=== PATIENT | female | born 1945 | race Two or more races ===

== ENCOUNTER 2022-09-10 08:36 | Outpatient (REF) | payer MEDICARE, SELFPAY ==
[2022-09-10 09:58] LABS: Alanine Aminotransferase 15 U/L (0-31); Albumin Level 4.4 g/dL (3.5-5.0); Alkaline Phosphatase 111 U/L (39-117); Anion Gap 11 (12-20); Aspartate Amino Transferase 17 U/L (5-31); Bilirubin Total 0.7 mg/dL (0.0-1.0); Blood Urea Nitrogen 15 mg/dL (9-16); Calcium 9.8 mg/dL (8.4-10.2); Carbon Dioxide 27 mmol/L (22-29); Chloride 102 mmol/L (96-108); Cholesterol 132 mg/dL; Estimated Glomerular Filt Rate 58; Glucose Random 147 mg/dL (60-115); HDL Cholesterol 35 mg/dL; LDL Cholesterol Calculated 78 mg/dl; Potassium 4.3 mmol/L (3.3-5.1); Sodium 136 mmol/L (135-145); Total Protein 7.7 g/dL (6.5-8.0); Triglycerides 95 mg/dL
[2022-09-10 10:16] LABS: Thyroid Stimulating Hormone 3.36 uIU/mL (0.32-4.0)
[2022-09-12 07:54] LABS: Thyroglobulin Antibodies <1 IU/mL (< or = 1)
[2022-09-12 13:18] LABS: Thyroid Peroxidase Antibodies <1 IU/mL (<9)
== END 2022-09-10 08:37 | disposition home or self-care (01) ==
LOC: HO.LAB 08:36
PROVIDERS: Visit Provider Internal Medicine
DX: E03.9 Hypothyroidism, unspecified (principal); E11.9 Type 2 diabetes mellitus without complications; E55.9 Vitamin D deficiency, unspecified; E78.5 Hyperlipidemia, unspecified
CPT/HCPCS: 36415; 80053; 80061; 82306; 84443; 86376; 86800

== ENCOUNTER 2022-09-14 09:28 | Outpatient (REF) | payer MEDICARE, SELFPAY ==
[2022-09-14 10:26] LABS: Creatinine Urine 45.07 mg/dL; Microalbumin Urine < 5.0 mg/L
== END 2022-09-14 09:29 | disposition home or self-care (01) ==
LOC: HO.LNP 09:28
PROVIDERS: Visit Provider Internal Medicine
DX: E11.9 Type 2 diabetes mellitus without complications (principal)
CPT/HCPCS: 82043

== ENCOUNTER 2023-03-07 09:24 | Outpatient (REF) | payer MEDICARE, SELFPAY | END 2023-03-07 09:25 | disposition home or self-care (01) | LOC: HO.LAB 09:24 | PROVIDERS: PCP Internal Medicine; Visit Provider Internal Medicine | DX: E03.9 Hypothyroidism, unspecified (principal); E55.9 Vitamin D deficiency, unspecified; E78.5 Hyperlipidemia, unspecified; E11.9 Type 2 diabetes mellitus without complications | CPT/HCPCS: 36415; 80053; 80061; 82043; 82306; 84443 ==

== ENCOUNTER 2023-07-08 09:56 | Outpatient (REF) | payer MEDICARE, SELFPAY ==
[2023-07-09 14:50] LABS: Calcium, Ionized 5.4 mg/dL (4.7-5.5)
[2023-07-09 15:23] LABS: Calcium (PTHI) 9.9 mg/dL (8.6-10.4); PTHI 39 pg/mL (16-77)
[2023-07-10 16:49] LABS: Calcium, Random Urine 2.4 mg/dL
== END 2023-07-08 09:57 | disposition home or self-care (01) ==
LOC: HO.LAB 09:56
PROVIDERS: PCP Internal Medicine; Visit Provider Internal Medicine
DX: E83.52 Hypercalcemia (principal)
CPT/HCPCS: 36415; 82310; 82330; 83970

== ENCOUNTER 2023-07-08 10:22 | Outpatient (AMB) | payer MEDICARE, SELFPAY ==
--- NOTE | 2023-07-08 10:34 | A.OFFPC_ITS ---
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 Required: No Accompanied by: Self / Same As Patient Allergies No Known Allergies Allergy (Verified 07/08/23 10:45) Medication List - Last Reconciled 07/08/23 by Lea Crockett MD atorvastatin 20 mg PO BEDTIME 90 days cholecalciferol (vitamin D3) 25 mcg PO DAILY 90 days hydrochlorothiazide 25 mg PO DAILY 90 days levothyroxine 50 mcg PO DAILY 90 days loratadine 10 mg PO DAILY 30 days losartan 50 mg PO DAILY 90 days metformin ER 500 mg PO BID 90 days triamcinolone acetonide 0.5% 1 appl topical DAILY 30 days Tobacco use date assessed: 09/05/22 Fall risk assessment: No Falls in past year Last assessed Fall Risk: 07/08/23 Dental Screening Dental Screen Date: 07/08/23 Did you have a dental visit in the last 12 months?: No Did you have a dental problem in the last 6 months where you did not have access to dental care?: No Was dental information given to patient?: Patient has dentist HPI HPI Comments History of Present Illness Details This is a 77-year-old female with diabetes mellitus type 2, hypertension, hyperlipidemia and hypothyroidism that complains of pain in feet aggravated by walking associated with decrease in sensation most likely secondary to neuropathy. A1c elevated and I will increase metformin to 3 tablets daily. Blood pressure elevated and this will be monitor. Lipid panel was order and her LDL goal should be less than 70. TSH also was order. A cane was order for gait stability due to pain in feet. [facility] Surgical History History of surgery on arm History of back surgery Family History Mother No problems noted. Father Diabetes Social History Housing: Apartment Alcohol intake: current Alcohol intake frequency: holidays/special occasions only Alcohol type: wine Patient Tobacco Use Status: Never used Tobacco e-Cigarette/Vaping Use: Never Used Second Hand Smoke Exposure: No service: No Current occupational status: disabled Cognitive needs: No Hearing needs: No Vision needs: No Questionnaire Thrive Questionnaire Date Thrive assessed: 09/05/22 CARMENZA-7 AMB Questionnaire CARMENZA-7 Date CARMENZA - 7 assessed: 09/05/22 Source: Developed by Drs. Jerardo Foster, Michelle Costa, Marcelino Ruffin and colleagues, with an educational coral from [employer]. Review of Systems Const All systems reviewed & are unremarkable except as noted in HPI and below Eyes Reports no additional complaints, Denies change in vision and Denies other visual disturbances Card Denies chest pain at rest, Denies chest pain with activity, Denies edema, Denies irregular heart rhythm, Denies claudication, Denies dyspnea, Denies dyspnea on exertion, Denies orthopnea, Denies paroxysmal nocturnal dyspnea and Denies slow heart rate Resp Denies cough, Denies dyspnea and Denies dyspnea on exertion GI Denies abdominal pain, Denies change in bowel habits, Denies excessive flatus, Denies nausea and Denies vomiting Denies urinary incontinence, Denies urinary hesitancy and Denies urinary urgency Musc Denies abnormal gait, Denies atrophy, Denies deformity and Denies limited range of motion Skin/Breast Denies bleeding lesions, Denies changing lesions and Denies rash Neuro Denies abnormal gait and Denies lack of coordination Physical exam (Primary Care) Vital Signs: Last Vital Signs BP 180/92 H 07/08/23 10:38 BMI result Body Mass Index 28.7 Tobacco/Smoking Status: Tobacco use Status Tobacco use date assessed 09/05/22 07/08/23 10:34 Patient Tobacco Use Status Never used Tobacco 07/08/23 10:34 e-Cigarette/Vaping Use Never Used 07/08/23 10:34 Thrive Assessment: Date of Thrive Assessment Date Thrive assessed 09/05/22 07/08/23 10:34 Eyes General: appearance normal, both eyes and all related structures Eyelids: Yes eyelids normal Conjunctivae: conjunctivae normal Neck Neck: Yes normal visual inspection and Yes supple Resp Effort & Inspection: normal respiratory effort Auscultation: clear to auscultation bilaterally Cardio Jugular venous distension: no JVD Rate: regular rate Rhythm: regular rhythm Heart sounds: S1 normal heart sound present and S2 normal heart sound present Extrem General: Yes full ROM Office Procedures Flu Questionnaire Does the patient have a severe egg allergy?: No Does the patient have severe life threatening allergies?: No Does the patient have a fever or illness today?: No Has the patient ever had Guillain-[place] Syndrome?: No Has the patient ever had any past reaction to a flu shot?: No Results AMB Hemoglobin A1c AMB Hemoglobin A1c 7.3 % Last Edit by JESÚS Price on 07/08/23 11:0 1 Immunizations flu vacc [id number] 6mos up(PF) 60 mcg(15 mcgx4)/0.5 mL IM syringe Performing Provider: Lea Crockett MD [facility] Administered by: JESÚS Price on 07/08/23 11:00 Dose Route Admin Location Dispensed Lot Number Expiration Date NDC [employer] [employer] 0.5 mL IM Right Deltoid 0.5 mL [id number] 03/01/24 59922-111-95 [employer] VIS Given Date VIS Provided VIS Publication Date 07/08/23 Single Vaccine 21 Eligibility Eligibility Date Funding Source Not VFC Eligible 07/08/23 Private Results Reviewed Results Reviewed: Laboratory Last Values Hgb A1c (Clinic) 7.3 % (4.0-6.0) H 07/08/23 10:43 Assessment and Plan Assessment & Plan (1) Diabetes mellitus: Code(s): E11.9 - Type 2 diabetes mellitus without complications Plan: Increase metformin to 3 tabs once a day. A1c goal is equal or less than 7%. (2) Hyperlipidemia LDL goal <70: Code(s): E78.5 - Hyperlipidemia, unspecified Plan: Continue statins. Repeat lipid panel. LDL goal is less than 70. (3) Essential hypertension: Code(s): I10 - Essential (primary) hypertension Plan: Continue losartan. Blood pressure goal is equal or less than 130/80. Monitor blood pressure at home. (4) Hypothyroidism: Code(s): E03.9 - Hypothyroidism, unspecified Plan: Continue levothyroxine. Monitor TSH. (5) Pain in both feet: Code(s): M79.671 - Pain in right foot; M79.672 - Pain in left foot Plan: Start using a cane for gait stability. Orders: Orders Influenza [id number] Immunization Today Z23 - Encounter for immunization Comprehensive [place]. Panel Fast 4 Months E11.9 - Type 2 diabetes mellitus without complications Thyroid Stimulating Hormone 4 Months E03.9 - Hypothyroidism, unspecified AMB Hemoglobin A1c Today E11.9 - Type 2 diabetes mellitus without complications Lipid Panel 4 Months E78.5 - Hyperlipidemia, unspecified Medications: New [diabetic shoes with inserts] As directed 1 ea 0RF E11.9 - Type 2 diabetes mellitus without complications, G62.9 - Polyneuropathy, unspecified cane As directed 1 ea 0RF G62.9 - Polyneuropathy, unspecified, M79.671 - Pain in right foot, M79.672 - Pain in left foot Changed From metformin ER 500 mg PO BID 90 days 180 tabs 1RF E11.9 - Type 2 diabetes mellitus without complications To metformin ER 1,500 mg (3 x 500 mg) PO DAILY 270 tabs 1RF 90 days E11.9 - Type 2 diabetes mellitus without complications Coding Level of Care Code Est Pt Level 4 (31252) Diagnoses Diabetes mellitus E11.9 Hyperlipidemia LDL goal <70 E78.5 Essential hypertension I10 Hypothyroidism E03.9 Pain in both feet M79.671; M79.672 Time Spent (min) 22
[2023-07-08 10:38] VITALS: BP 180/92; BMI 28.7
[2023-07-08 11:26] VITALS: BP 160/90
== END 2023-07-08 11:02 | disposition home or self-care (01) ==
PROVIDERS: PCP Internal Medicine; Visit Provider Internal Medicine
DX: E11.9 Type 2 diabetes mellitus without complications (principal); E78.5 Hyperlipidemia, unspecified; I10 Essential (primary) hypertension; E03.9 Hypothyroidism, unspecified; M79.671 Pain in right foot; M79.672 Pain in left foot; Z23 Encounter for immunization
CPT/HCPCS: 83036; 90471; 90686; 99214

== ENCOUNTER 2023-11-11 07:32 | Outpatient (REF) | payer MEDICARE, SELFPAY ==
[2023-11-11 09:11] LABS: Alanine Aminotransferase 15 U/L (0-31); Albumin Level 4.2 g/dL (3.5-5.0); Alkaline Phosphatase 117 U/L (39-117); Anion Gap 12 (12-20); Aspartate Amino Transferase 15 U/L (5-31); Bilirubin Total 0.8 mg/dL (0.0-1.0); Blood Urea Nitrogen 15 mg/dL (9-16); Calcium 9.8 mg/dL (8.4-10.2); Carbon Dioxide 29 mmol/L (22-29); Chloride 103 mmol/L (96-108); Cholesterol 115 mg/dL (<200); Estimated Glomerular Filt Rate 56; Glucose Fasting 188 mg/dL (60-99); HDL Cholesterol 32 mg/dL (>40); LDL Cholesterol Calculated 66 mg/dL (<100); Potassium 4.2 mmol/L (3.3-5.1); Sodium 140 mmol/L (135-145); Total Protein 7.5 g/dL (6.5-8.0); Triglycerides 86 mg/dL (<150)
[2023-11-11 09:26] LABS: Thyroid Stimulating Hormone 4.04 uIU/mL (0.32-4.0)
== END 2023-11-11 07:33 | disposition home or self-care (01) ==
LOC: HO.LAB 07:32
PROVIDERS: PCP Internal Medicine; Visit Provider Internal Medicine
DX: E78.5 Hyperlipidemia, unspecified (principal); E11.9 Type 2 diabetes mellitus without complications; E03.9 Hypothyroidism, unspecified
CPT/HCPCS: 36415; 80053; 80061; 84443

== ENCOUNTER 2023-11-11 07:45 | Outpatient (AMB) | payer MEDICARE, SELFPAY ==
--- NOTE | 2023-11-11 07:51 | MHC.PC.OV ---
Vital Signs 11/11/23 07:52 11/11/23 08:21 Height 5 ft 2 in Weight 158 lb BMI 28.9 BP 140/90 H 142/90 H Blood Pressure Location Lt brachial Lt brachial Position Sitting Sitting Intake Visit Reasons: dm,bp Intake Note: Patient here for a follow up BP, DM Fsr Required: No Accompanied by: Self / Same As Patient Allergies No Known Allergies Allergy (Verified 11/11/23 08:04) Medication List - Last Reconciled 11/11/23 by Lea Crockett MD atorvastatin 20 mg PO BEDTIME 90 days cane As directed cholecalciferol (vitamin D3) 25 mcg PO DAILY 90 days [diabetic shoes with inserts As directed] hydrochlorothiazide 25 mg PO DAILY 90 days levothyroxine 50 mcg PO DAILY 90 days loratadine 10 mg PO DAILY 30 days losartan 50 mg PO DAILY 90 days metformin ER 1,500 mg (3 x 500 mg) PO DAILY 90 days triamcinolone acetonide 0.5% 1 appl topical DAILY 30 days Tobacco use date assessed: 11/11/23 Fall risk assessment: No Falls in past year Last assessed Fall Risk: 11/11/23 Dental Screening Dental Screen Date: 11/11/23 Did you have a dental visit in the last 12 months?: No Did you have a dental problem in the last 6 months where you did not have access to dental care?: No Was dental information given to patient?: Patient declined HPI HPI Comments History of Present Illness Details This is a 77-year-old female with diabetes mellitus type 2, hypertension, hyperlipidemia and hypothyroidism that comes today for follow-up on her conditions. Blood pressure elevated and will be recheck in 3 weeks by nurse navigator. I will increase losartan from 50 mg to 100 mg. A1c not on goal and I will add Jardiance to her metformin. Labs are still pending. No chest pain or shortness of breath. [facility] Surgical History History of surgery on arm History of back surgery Family History Mother No problems noted. Father Diabetes Social History Housing: Apartment Alcohol intake: current Alcohol intake frequency: holidays/special occasions only Alcohol type: wine Patient Tobacco Use Status: Never used Tobacco e-Cigarette/Vaping Use: Never Used Second Hand Smoke Exposure: No service: No Current occupational status: disabled Cognitive needs: No Hearing needs: No Vision needs: No Questionnaire PHQ-9 Over the last 2 weeks, how often have you been bothered by any of the following problems? 1. Little interest or pleasure in doing things: not at all 2. Feeling down, depressed, or hopeless: not at all 3. Trouble falling or staying asleep, or sleeping too much: not at all 4. Feeling tired or having little energy: not at all 5. Poor appetite or overeating: not at all 6. Feeling bad about yourself - or that you are a failure or have let yourself or your family down: not at all 7. Trouble concentrating on things, such as reading the newspaper or watching television: not at all 8. Moving or speaking so slowly that other people could have noticed. Or the opposite - being so fidgety or restless that you have been moving around a lot more than usual: not at all 9. Thoughts that you would be better off or of hurting yourself in some way: not at all Total score: 0 Depression Screening Interpretation: Negative Depression Screening Done: Yes 52167 - PHQ-9 Billing: Yes Source: Developed by Drs. Jerardo Foster, Michelle Costa, Marcelino Ruffin and colleagues, with an educational coral from [employer]. Thrive Questionnaire Date Thrive assessed: 11/11/23 I am a: Patient What is your living situation today?: I have a steady place to live Within the past 12 months, did the food you bought not last and you didn't have the money to get more?: Never true Within the past 12 months, did you worry whether your food would run out before you got money to buy more?: Never true Do you have trouble paying for medicines?: No Do you have trouble getting transportation to medical appointments?: No Do you have trouble paying your heating and electricity bill?: No Do you have trouble taking care of your child, family member or friend?: No Do you have trouble with day-to-day activities such as bathing, preparing meals, shopping, managing finances, etc.?: No Are you currently unemployed and looking for a job?: No Are you interested in more education?: No Please select the resources that you would like help with: None Currently or been in a relationship where the following occur: no concerns reported THRIVE Score: 0 AUDIT C Alcohol Use Questionnaire (AUDIT-C) 1. How often do you have a drink containing alcohol?: Monthly or less 2. How many drinks containing alcohol do you have on a typical day when you are drinking?: 1 or 2 3. How often do you have six or more drinks on one occasion?: Never Total Score: 1 CARMENZA-7 AMB Questionnaire CARMENZA-7 Date CARMENZA - 7 assessed: 11/11/23 Feeling nervous, anxious, or on edge: 0 = Not at all Not being able to stop or control worryin = Not at all Worrying too much about different things: 0 = Not at all Trouble relaxin = Not at all Being so restless that it is hard to sit still: 0 = Not at all Becoming easily annoyed or irritable: 0 = Not at all Feeling afraid as if something awful might happen: 0 = Not at all Total CARMENZA-7 score (0-4 normal; 5-9 mild; 10-14 moderate; 15-21 severe): 0 Source: Developed by Drs. Jerardo Foster, Michelle Costa, Marcelino Ruffin and colleagues, with an educational coral from [employer]. CARMENZA-7 Assessment Billing CARMENZA-7 Assessment Tool: CARMENZA-7 Assessment 29200 Review of Systems Const All systems reviewed & are unremarkable except as noted in HPI and below Eyes Reports no additional complaints, Denies change in vision and Denies other visual disturbances Card Denies chest pain at rest, Denies chest pain with activity, Denies edema, Denies irregular heart rhythm, Denies claudication, Denies dyspnea, Denies dyspnea on exertion, Denies orthopnea, Denies paroxysmal nocturnal dyspnea and Denies slow heart rate Resp Denies cough, Denies dyspnea and Denies dyspnea on exertion GI Denies abdominal pain, Denies change in bowel habits, Denies excessive flatus, Denies nausea and Denies vomiting Denies urinary incontinence, Denies urinary hesitancy and Denies urinary urgency Musc Denies abnormal gait, Denies atrophy, Denies deformity and Denies limited range of motion Skin/Breast Denies bleeding lesions, Denies changing lesions and Denies rash Neuro Denies abnormal gait, Denies behavioral changes and Denies lack of coordination Psych Denies behavioral changes Physical exam (Primary Care) Vital Signs: Last Vital Signs BP 140/90 H 11/11/23 07:52 BMI result Body Mass Index 28.9 Tobacco/Smoking Status: Tobacco use Status Tobacco use date assessed 11/11/23 11/11/23 08:01 Patient Tobacco Use Status Never used Tobacco 11/11/23 08:01 e-Cigarette/Vaping Use Never Used 11/11/23 08:01 PHQ-9: PHQ-9 Score PHQ-9: Total score 0 11/11/23 08:07 Depression Screening Interpretation: Negative Thrive Assessment: Date of Thrive Assessment Date Thrive assessed 11/11/23 11/11/23 08:01 Currently or been in a relationship where the following occur: no concerns reported Eyes Other: left eye corneal opacity Neck Neck: Yes normal visual inspection and Yes supple Resp Effort & Inspection: normal respiratory effort Auscultation: clear to auscultation bilaterally Cardio Jugular venous distension: no JVD Rate: regular rate Rhythm: regular rhythm Heart sounds: S1 normal heart sound present and S2 normal heart sound present Extrem General: Yes full ROM Results AMB Hemoglobin A1c AMB Hemoglobin A1c 8.5 % Last Edit by JESÚS Price on 11/11/23 08:02 Results Reviewed Results Reviewed: Laboratory Last Values Hgb A1c (Clinic) 8.5 % (4.0-6.0) H 11/11/23 07:47 Assessment and Plan Assessment & Plan (1) Diabetes mellitus: Code(s): E11.9 - Type 2 diabetes mellitus without complications Qualifiers: Diabetes mellitus type: type 2 Diabetes mellitus long-term insulin use: without long-term use Diabetes mellitus complication status: with hyperglycemia Qualified Code(s): E11.65 - Type 2 diabetes mellitus with hyperglycemia Plan: Continue metformin. Start Jardiance. A1c goal is equal or less than 7%. (2) Essential hypertension: Code(s): I10 - Essential (primary) hypertension Plan: Increase losartan to 100 mg. Continue hydrochlorothiazide. Recheck blood pressure with nurse navigator in 3 weeks. Blood pressure goal is equal or less than 130/80. (3) Hyperlipidemia LDL goal <70: Code(s): E78.5 - Hyperlipidemia, unspecified Plan: Continue statins. LDL goal is less than 70. (4) Hypothyroidism: Code(s): E03.9 - Hypothyroidism, unspecified Qualifiers: Hypothyroidism type: acquired Qualified Code(s): E03.9 - Hypothyroidism, unspecified Plan: Continue levothyroxine. Monitor TSH. Orders: Orders Thyroid Stimulating Hormone 4 Months E03.9 - Hypothyroidism, unspecified AMB Hemoglobin A1c Today E11.9 - Type 2 diabetes mellitus without complications Vitamin D 25-OH Total 4 Months E55.9 - Vitamin D deficiency, unspecified Lipid Panel 4 Months E78.5 - Hyperlipidemia, unspecified Microalbumin, Random (w Creat) 4 Months E11.9 - Type 2 diabetes mellitus without complications Comprehensive [place]. Panel Fast 4 Months E11.9 - Type 2 diabetes mellitus without complications Medications: New empagliflozin (Jardiance) 10 mg PO DAILY 90 days 90 tabs 1RF losartan 100 mg PO DAILY 90 days 90 tabs 2RF Refilled metformin ER 1,500 mg (3 x 500 mg) PO DAILY 90 days 270 tabs 1RF E11.9 - Type 2 diabetes mellitus without complications Discontinued losartan Discontinued Reason: No Longer Medically Relevant 50 mg PO DAILY 90 days 90 tabs 1RF Coding Level of Care Code Est Pt Level 4 (59107) Diagnoses Type 2 diabetes mellitus with hyperglycemia, without long-term current use of insulin E11.65 Diabetes mellitus type: type 2 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
[2023-11-11 07:52] VITALS: BP 140/90; BMI 28.9
[2023-11-11 08:21] VITALS: BP 142/90
== END 2023-11-11 08:11 | disposition home or self-care (01) ==
PROVIDERS: PCP Internal Medicine; Visit Provider Internal Medicine
DX: E11.65 Type 2 diabetes mellitus with hyperglycemia (principal); I10 Essential (primary) hypertension; E78.5 Hyperlipidemia, unspecified; E03.9 Hypothyroidism, unspecified; E11.9 Type 2 diabetes mellitus without complications
CPT/HCPCS: 83036; 99214

== ENCOUNTER 2024-03-16 10:17 | Outpatient (AMB) | payer MEDICARE, SELFPAY ==
--- NOTE | 2024-03-16 10:25 | A.OFFPC_ITS ---
Vital Signs 03/16/24 10:33 Height 5 ft 2 in Weight 156 lb 6 oz BMI 28.6 BP 164/90 H Blood Pressure Location Lt brachial Position Sitting Pulse 68 Pulse Source Pulse Oximeter Pulse Oximetry (%) 98 Oxygen Delivery Method Room Air Intake Visit Reasons: PE Intake Note: Patient is here today for a physical. 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 Required: No Accompanied by: Self / Same As Patient Allergies No Known Allergies Allergy (Verified 03/16/24 10:52) Medication List - Last Reconciled 03/16/24 by Lea Crockett MD atorvastatin 20 mg PO BEDTIME 90 days blood pressure monitor As directed cane As directed cholecalciferol (vitamin D3) 25 mcg PO DAILY 90 days [diabetic shoes with inserts As directed] empagliflozin (Jardiance) 10 mg PO DAILY 90 days hydrochlorothiazide 25 mg PO DAILY 90 days levothyroxine 50 mcg PO DAILY 90 days loratadine 10 mg PO DAILY 30 days losartan 100 mg PO DAILY 90 days metformin ER 1,500 mg (3 x 500 mg) PO DAILY 90 days triamcinolone acetonide 0.5% 1 appl topical DAILY 30 days Tobacco use date assessed: 11/11/23 Fall risk assessment: No Falls in past year Last assessed Fall Risk: 03/16/24 Dental Screening Dental Screen Date: 11/11/23 HPI HPI Comments History of Present Illness Details This is a 78-year-old female with diabetes mellitus type 2 that comes for her physical exam. A1c has improved but still elevated and I will increase Jardiance. Mammogram was done over a year ago. Declines colonoscopy. DEXA scan will also be ordered. [facility] Surgical History History of surgery on arm History of back surgery Family History (Updated 03/16/24 @ 10:58 by Lea Crockett MD) Mother No problems noted. Father Diabetes Sister Stroke Social History Housing: Apartment Alcohol intake: current Alcohol intake frequency: holidays/special occasions only Alcohol type: wine Patient Tobacco Use Status: Never used Tobacco e-Cigarette/Vaping Use: Never Used Second Hand Smoke Exposure: No service: No Current occupational status: disabled Cognitive needs: No Hearing needs: No Vision needs: No Questionnaire Thrive Questionnaire Date Thrive assessed: 11/11/23 CARMENZA-7 AMB Questionnaire CARMENZA-7 Date CARMENZA - 7 assessed: 11/11/23 Source: Developed by Drs. Jerardo Foster, Michelle Costa, Marcelino Ruffin and colleagues, with an educational coral from [employer]. Review of Systems Const All systems reviewed & are unremarkable except as noted in HPI and below Card Denies chest pain at rest, Denies chest pain with activity, Denies edema, Denies irregular heart rhythm, Denies claudication, Denies dyspnea, Denies dyspnea on exertion, Denies orthopnea, Denies paroxysmal nocturnal dyspnea and Denies slow heart rate Resp Denies cough, Denies dyspnea and Denies dyspnea on exertion Physical exam (Primary Care) Vital Signs: Last Vital Signs Pulse 68 03/16/24 10:33 BP 164/90 H 03/16/24 10:33 Pulse Ox 98 03/16/24 10:33 Oxygen Delivery Method Room Air 03/16/24 10:33 BMI result Body Mass Index 28.6 Tobacco/Smoking Status: Tobacco use Status Tobacco use date assessed 11/11/23 03/16/24 10:25 Patient Tobacco Use Status Never used Tobacco 03/16/24 10:25 e-Cigarette/Vaping Use Never Used 03/16/24 10:25 Thrive Assessment: Date of Thrive Assessment Date Thrive assessed 11/11/23 03/16/24 10:25 HENOR Head: Yes normal to inspection, Yes normocephalic and Yes atraumatic Ears: external ears normal Eyes Corneas: corneas abnormal on the left diffuse opacification Neck Neck: Yes normal visual inspection and Yes supple Resp Effort & Inspection: normal respiratory effort Auscultation: clear to auscultation bilaterally Cardio Jugular venous distension: no JVD Rate: regular rate Rhythm: regular rhythm Heart sounds: S1 normal heart sound present and S2 normal heart sound present GI Inspection: Yes normal to inspection Palpation (GI): Soft to palpation and nontender Auscultation: normal bowel sounds Skin General skin exam: no rashes or lesions noted Neuro General: no focal motor deficits Extrem General: Yes full ROM Psych Appearance: grossly normal Results AMB Hemoglobin A1c AMB Hemoglobin A1c 7.9 % Last Edit by KALEY Donahue on 03/16/24 10:47 Results Reviewed Results Reviewed: Laboratory Last Values Hgb A1c (Clinic) 7.9 % (4.0-6.0) H 03/16/24 10:36 Assessment and Plan Assessment & Plan (1) Physical exam: Code(s): Z00.00 - Encounter for general adult medical examination without abnormal findings Plan: Repeat in a year. 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 Increase Jardiance. A1c goal is equal or less than 7%. Orders: Orders XR DEXA axial skeleton Today N95.9 - Unspecified menopausal and perimenopausal disorder MM screening mammo BI Today Z12.31 - Encounter for screening mammogram for malignant neoplasm of breast AMB Hemoglobin A1c Today E11.65 - Type 2 diabetes mellitus with hyperglycemia Vitamin D 25-OH Total Today E55.9 - Vitamin D deficiency, unspecified Medications: New amlodipine 2.5 mg PO DAILY 90 tabs 1RF 90 days I10 - Essential (primary) hypertension empagliflozin (Jardiance) 25 mg PO DAILY 90 tabs 1RF 90 days fluocinolone acetonide oil 0.01% (DermOtic Oil) 5 drps otic (ear) left BID 20 mL 0RF 7 days Refilled hydrochlorothiazide 25 mg PO DAILY 90 tabs 1RF 90 days losartan 100 mg PO DAILY 90 tabs 2RF 90 days metformin ER 1,500 mg (3 x 500 mg) PO DAILY 270 tabs 1RF 90 days E11.9 - Type 2 diabetes mellitus without complications atorvastatin 20 mg PO BEDTIME 90 tabs 1RF 90 days cholecalciferol (vitamin D3) 25 mcg PO DAILY 90 caps 1RF 90 days Discontinued empagliflozin (Jardiance) Discontinued Reason: Patient Completed Course 10 mg PO DAILY 90 days 90 tabs 1RF Review Patient declined Colonoscopy: 03/16/24 Coding Level of Care Code Est Pt Prev Care >65y(54044) Diagnoses Physical exam Z00.00 Type 2 diabetes mellitus with hyperglycemia, without long-term current use of insulin E11.65 Diabetes mellitus type: type 2 Diabetes mellitus chcf insulin use: without chcf use Diabetes mellitus complication status: with hyperglycemia Time Spent (min) 31
[2024-03-16 10:33] VITALS: BP 164/90; PULSE 68; O2SAT 98; BMI 28.6
== END 2024-03-16 11:05 | disposition home or self-care (01) ==
PROVIDERS: PCP Internal Medicine; Visit Provider Internal Medicine
DX: Z00.00 Encounter for general adult medical examination without abnormal findings (principal); E11.65 Type 2 diabetes mellitus with hyperglycemia
CPT/HCPCS: 83036; 99397

== ENCOUNTER 2024-03-16 11:09 | Outpatient (REF) | payer MEDICARE, SELFPAY ==
[2024-03-16 12:22] LABS: Thyroid Stimulating Hormone 2.36 uIU/mL (0.32-4.0); Vitamin D 25-OH Total 29.9 ng/mL (>30)
== END 2024-03-16 11:10 | disposition home or self-care (01) ==
LOC: HO.LAB 11:09
PROVIDERS: PCP Internal Medicine; Visit Provider Internal Medicine
DX: E55.9 Vitamin D deficiency, unspecified (principal); E03.9 Hypothyroidism, unspecified
CPT/HCPCS: 36415; 82306; 84443

== ENCOUNTER 2024-03-19 08:45 | Outpatient (REF) | payer MEDICARE, SELFPAY ==
[2024-03-19 10:29] LABS: Vitamin D 25-OH Total 26.9 ng/mL (>30)
== END 2024-03-19 08:46 | disposition home or self-care (01) ==
LOC: HO.LAB 08:45
PROVIDERS: PCP Internal Medicine; Visit Provider Internal Medicine
DX: E55.9 Vitamin D deficiency, unspecified (principal)
CPT/HCPCS: 36415; 82306

== ENCOUNTER 2024-03-24 09:33 | Outpatient (REF) | payer MEDICARE, SELFPAY ==
[2024-03-24 10:53] LABS: Creatinine Urine 89.76 mg/dL; Microalbum/Creatinine Ratio Ur 8.9 ug/mg cr (<30)
== END 2024-03-24 09:34 | disposition home or self-care (01) ==
LOC: HO.LNP 09:33
PROVIDERS: Visit Provider Internal Medicine
DX: E11.9 Type 2 diabetes mellitus without complications (principal)
CPT/HCPCS: 82043; 82570

== ENCOUNTER 2024-04-24 08:41 | Outpatient (REF) | payer MEDICARE, SELFPAY ==
--- NOTE | ~2024-04-24 | MM_ITS ---
EXAMINATION: BONE DENSITOMETRY CLINICAL INDICATION: Menopause. COMPARISON: This is the patient's baseline examination. TECHNIQUE: Using a [employer] DXA System (software version: 13.1) manufactured by [employer], dual-energy x-ray absorptiometry was performed of the lumbar spine and left hip. The images are of good technical quality. Summary results are attached. FINDINGS: LEFT FEMUR, NECK: BMD 0.955 g/cm2, Z-score 1.3, T-score -0.6, normal. LEFT FEMUR, TOTAL: BMD 1.080 g/cm2, Z-score 2.3, T-score 0.6, normal. AP SPINE L1-L3 (excluding L4): The data of L1-L4 has been changed to exclude the L4 vertebral body, because at this level may cause overestimation of lumbar spine density. BMD 1.015 g/cm2, Z-score 0.3, T-score -1.3, osteopenia. IDENTIFIED RISK FACTORS: Menopause, low calcium intake, thiazide. HISTORY OF FRACTURE: None listed. MEDICATIONS: Vitamin D. MM/XR DEXA axial skeleton IMPRESSION: 1. DIAGNOSIS: Osteopenia based on the lowest T-score value of -1.3 in the lumbar spine applying World Health Organization criteria. 2. 10-YEAR FRACTURE RISK PREDICTION, FRAX: Major osteoporotic fracture (clinical spine, forearm, hip or shoulder) 5.4%. Hip fracture 0.7%. 3. Treatment Recommendations: NOF guidelines recommend consideration for treatment in postmenopausal women and men age 50 and older presenting with the following: -A hip or vertebral (clinical or morphometric) fracture. -T-score less than or equal to -2.5 at the femoral neck or spine after appropriate evaluation to exclude secondary causes. -Low bone mass at the hip or spine and a 10-year fracture probability by FRAX of greater than or equal to 3% for hip fracture or greater than or equal to 20% for major osteoporotic fracture based on the [place] adapted WHO algorithm. 4. Other Recommendations: All treatment decisions require clinical judgment and consideration of individual patient factors, including patient preferences, comorbidities, previous drug use, risk factors not captured in the FRAX model (e.g. frailty, falls, vitamin D deficiency, increased bone turnover, interval significant decline in bone density) and possible under or overestimation of fracture risk by FRAX. Additional medical evaluation for secondary cause of low bone mineral density may be appropriate. FUTURE SCAN RECOMMENDATION: People with diagnosed cases of osteoporosis or at high risk for fracture should have regular bone mineral density tests. For patients eligible for Medicare, routine testing is allowed once every 2 years. The testing frequency can be increased to one year for patients who have rapidly progressing disease, those who are receiving or discontinuing medical therapy to restore bone mass, or have additional risk factors. Electronically signed by: Art Elizabeth MD 04/27/2024 08:37 AM EDT
--- NOTE | ~2024-04-24 | MM_ITS ---
EXAMINATION: MM SCREENING DIGITAL BREAST TOMOSYNTHESIS, BILATERAL CLINICAL INFORMATION: Screening. Asymptomatic. COMPARISON: Mammography: No prior mammograms for comparison. TECHNIQUE: Digital breast tomosynthesis is performed in both the craniocaudal and mediolateral oblique views along with computer-aided detection (CAD). Synthesized 2D images are generated from the tomosynthesis. FINDINGS: There are scattered areas of fibroglandular density (ACR BI-RADS breast composition Category b). There are no significant masses, abnormal calcifications, or other abnormalities. MM/MM tomosynthesis screening BI IMPRESSION: No mammographic evidence of malignancy. ASSESSMENT: BI-RADS BI-RADS 1 - Negative RECOMMENDATION: Routine annual mammography screening. 1 year F/U This examination should not preclude the clinical evaluation of a suspicious palpable abnormality. This patient's information was entered into a reminder system with a target due date for their next mammogram. Electronically signed by: Rolanda Foreman MD 05/21/2024 10:19 PM EDT
== END 2024-04-24 08:42 | disposition home or self-care (01) ==
LOC: HO.MAMMO 08:41
PROVIDERS: PCP Internal Medicine; Visit Provider Internal Medicine
DX: Z12.31 Encounter for screening mammogram for malignant neoplasm of breast (principal); Z13.820 Encounter for screening for osteoporosis; Z78.0 Asymptomatic menopausal state
CPT/HCPCS: 77063; 77067; 77080

== ENCOUNTER → 2024-04-24 09:00 | Outpatient (BNV) | payer MEDICARE, SELFPAY | PROVIDERS: PCP Internal Medicine; Visit Provider Radiology Diagnostic Radiology | DX: Z12.31 Encounter for screening mammogram for malignant neoplasm of breast (principal) | CPT/HCPCS: 77063; 77067 ==

== ENCOUNTER 2024-11-17 15:48 | Outpatient (AMB) | payer MEDICARE, SELFPAY ==
--- NOTE | 2024-11-17 16:19 | A.OFFPC_ITS ---
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 Required: No Accompanied by: Self / Same As Patient Allergies No Known Allergies Allergy (Verified 11/17/24 16:44) Medication List - Last Reconciled 11/17/24 by Lea Crockett MD amlodipine 2.5 mg PO DAILY 90 days atorvastatin 20 mg PO BEDTIME 90 days blood pressure monitor As directed calcium carbonate (Oyster Shell Calcium) 500 mg PO BID 90 days cane As directed cholecalciferol (vitamin D3) 25 mcg PO DAILY 90 days [diabetic shoes with inserts As directed] empagliflozin (Jardiance) 25 mg PO DAILY 90 days fluocinolone acetonide oil 0.01% (DermOtic Oil) 5 drps otic (ear) left BID 7 days hydrochlorothiazide 25 mg PO DAILY 90 days levothyroxine 50 mcg PO DAILY 90 days loratadine 10 mg PO DAILY 30 days losartan 100 mg PO DAILY 90 days metformin ER 1,500 mg (3 x 500 mg) PO DAILY 90 days triamcinolone acetonide 0.5% 1 appl topical DAILY 30 days Tobacco use date assessed: 11/17/24 Fall risk assessment: No Falls in past year Last assessed Fall Risk: 11/17/24 Dental Screening Dental Screen Date: 11/17/24 Did you have a dental visit in the last 12 months?: No Did you have a dental problem in the last 6 months where you did not have access to dental care?: No Was dental information given to patient?: Patient has dentist HPI HPI Comments History of Present Illness Details The patient is a 78-year-old female presenting with suboptimal management of Type 2 Diabetes Mellitus. Her recent HbA1c level is elevated at 10.4%, exceeding the target level of 7%. She is currently on Metformin 1,500 mg, which will be increased due to persistent high blood glucose levels. There are no reports of chest pain, shortness of breath, or hypoglycemic events. Current prescriptions include Losartan for hypertension, Atorvastatin for hyperlipidemia , and Levothyroxine for hypothyroidism, with a thyroid function test planned to validate therapy effectiveness. Allergic rhinitis symptoms are managed with loratadine on an as-needed basis. Continued evaluation and adjustment of her diabetes treatment are prioritized to achieve better glycemic control. [facility] History History of surgery on arm History of back surgery Family History Mother No problems noted. Father Diabetes Sister Stroke Social History Housing: Apartment Alcohol intake: current Alcohol intake frequency: holidays/special occasions only Alcohol type: wine Patient Tobacco Use Status: Never used Tobacco e-Cigarette/Vaping Use: Never Used Second Hand Smoke Exposure: No service: No Current occupational status: disabled Cognitive needs: No Hearing needs: No Vision needs: No Questionnaire PHQ-9 Over the last 2 weeks, how often have you been bothered by any of the following problems? 1. Little interest or pleasure in doing things: not at all 2. Feeling down, depressed, or hopeless: not at all 3. Trouble falling or staying asleep, or sleeping too much: not at all 4. Feeling tired or having little energy: not at all 5. Poor appetite or overeating: not at all 6. Feeling bad about yourself - or that you are a failure or have let yourself or your family down: not at all 7. Trouble concentrating on things, such as reading the newspaper or watching television: not at all 8. Moving or speaking so slowly that other people could have noticed. Or the opposite - being so fidgety or restless that you have been moving around a lot more than usual: not at all 9. Thoughts that you would be better off or of hurting yourself in some way: not at all Total score: 0 Depression Screening Interpretation: Negative Depression Screening Done: Yes 42387 - PHQ-9 Billing: Yes Source: Developed by Drs. Jerardo Foster, Michelle Costa, Marcelino Ruffin and colleagues, with an educational coral from [employer]. Thrive Questionnaire Date Thrive assessed: 11/17/24 I am a: Patient What is your living situation today?: I have a steady place to live Within the past 12 months, did the food you bought not last and you didn't have the money to get more?: Never true Within the past 12 months, did you worry whether your food would run out before you got money to buy more?: Never true Do you have trouble paying for medicines?: No Do you have trouble getting transportation to medical appointments?: No Do you have trouble paying your heating and electricity bill?: No Do you have trouble taking care of your child, family member or friend?: No Do you have trouble with day-to-day activities such as bathing, preparing meals, shopping, managing finances, etc.?: No Are you currently unemployed and looking for a job?: No Are you interested in more education?: No Please select the resources that you would like help with: None Currently or been in a relationship where the following occur: No concerns reported THRIVE Score: 0 AUDIT C Alcohol Use Questionnaire (AUDIT-C) 1. How often do you have a drink containing alcohol?: Monthly or less 2. How many drinks containing alcohol do you have on a typical day when you are drinking?: 1 or 2 3. How often do you have six or more drinks on one occasion?: Never Total Score: 1 CARMENZA-7 AMB Questionnaire CARMENZA-7 Date CARMENZA - 7 assessed: 11/17/24 Feeling nervous, anxious, or on edge: 0 = Not at all Not being able to stop or control worryin = Not at all Worrying too much about different things: 0 = Not at all Trouble relaxin = Not at all Being so restless that it is hard to sit still: 0 = Not at all Becoming easily annoyed or irritable: 0 = Not at all Feeling afraid as if something awful might happen: 0 = Not at all Total CARMENZA-7 score (0-4 normal; 5-9 mild; 10-14 moderate; 15-21 severe): 0 Source: Developed by Drs. Jerardo Foster, Michelle Costa, Marcelino Ruffin and colleagues, with an educational coral from [employer]. CARMENZA-7 Assessment Billing CARMENZA-7 Assessment Tool: CARMENZA-7 Assessment 20253 Review of Systems Const All systems reviewed & are unremarkable except as noted in HPI and below Card Denies chest pain at rest, Denies chest pain with activity, Denies edema, Denies irregular heart rhythm, Denies claudication, Denies dyspnea, Denies dyspnea on exertion, Denies orthopnea, Denies paroxysmal nocturnal dyspnea and Denies slow heart rate Resp Denies cough, Denies dyspnea and Denies dyspnea on exertion GI Denies abdominal pain, Denies change in bowel habits, Denies excessive flatus, Denies nausea and Denies vomiting Physical exam (Primary Care) Vital Signs: Last Vital Signs BP 138/82 11/17/24 16:28 BMI result Body Mass Index 28.7 Tobacco/Smoking Status: Tobacco use Status Tobacco use date assessed 11/17/24 11/17/24 16:36 Patient Tobacco Use Status Never used Tobacco 11/17/24 16:23 e-Cigarette/Vaping Use Never Used 11/17/24 16:23 PHQ-9: PHQ-9 Score PHQ-9: Total score 0 11/17/24 16:49 Depression Screening Interpretation: Negative Thrive Assessment: Date of Thrive Assessment Date Thrive assessed 11/17/24 11/17/24 16:23 Currently or been in a relationship where the following occur: No concerns reported Resp Effort & Inspection: normal respiratory effort Auscultation: clear to auscultation bilaterally Cardio Jugular venous distension: no JVD Rate: regular rate Rhythm: regular rhythm Heart sounds: S1 normal heart sound present and S2 normal heart sound present Extrem General: Yes full ROM Results AMB Hemoglobin A1c AMB Hemoglobin A1c 10.4 % Last Edit by JESÚS Price on 11/17/24 16: 41 Results Reviewed Results Reviewed: Laboratory Last Values Hgb A1c (Clinic) 10.4 % (4.0-6.0) H 11/17/24 16:18 Coding Level of Care Code Est Pt Level 4 (60296) Complex EM visit Add On G2211 Diagnoses Type 2 diabetes mellitus with hyperglycemia, without long-term current use of insulin E11.65 Diabetes mellitus type: type 2 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: without [place] [facility] use Diabetes mellitus complication status: with hyperglycemia Hyperlipidemia LDL goal <70 E78.5 Essential hypertension I10 Acquired hypothyroidism E03.9 Hypothyroidism type: acquired Additional Codes CARMENZA-7 Assessment Billing - CARMENZA-7 Assessment Tool: CARMENZA-7 Assessment 73690 ([id number]) PHQ-9 - 59077 - PHQ-9 Billing: Yes ([id number]) Time Spent (min) 22 Assessment & Plan Assessment & Plan (1) Diabetes mellitus: Code(s): E11.9 - Type 2 diabetes mellitus without complications Category: Medical Qualifiers: Diabetes mellitus type: type 2 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 Diabetes mellitus complication status: with hyperglycemia Qualified Code(s): E11.65 - Type 2 diabetes mellitus with hyperglycemia (2) Hyperlipidemia LDL goal <70: Code(s): E78.5 - Hyperlipidemia, unspecified Category: Medical (3) Essential hypertension: Code(s): I10 - Essential (primary) hypertension Category: Medical (4) Hypothyroidism: Code(s): E03.9 - Hypothyroidism, unspecified Category: Medical Qualifiers: Hypothyroidism type: acquired Qualified Code(s): E03.9 - Hypothyroidism, unspecified Plan The patient's diabetes management includes an increase in Metformin to 2,000 mg due to elevated HbA1c. Current antihypertensive and lipid-lowering therapies remain unchanged given their efficacy. Further laboratory panels, including thyroid function tests, are to be conducted. Ophthalmology referral is planned for diabetes-related eye examination. Dietary modifications are reinforced to assist in achieving target glucose levels. Follow-up visits will focus on monitoring glycemic control and adjusting therapies as needed. Patient was informed and verbally consented to the use of an ambient scribe for clinic note documentation during this visit. The patient and I discussed increasing her Metformin dose to improve her diabetes control, given the elevated HbA1c. We weighed the benefits of increased Metformin against the potential need for insulin and the risk of adverse effects, which she understood and agreed to proceed with the medication adjustment. The importance of dietary regulation and portion control was emphasized, particularly limiting sugar intake. A referral was made for ophthalmologic evaluation due to diabetes risk factors. We will follow up on lab results, thyroid management, and overall diabetes control in subsequent visits. Orders: Orders AMB Hemoglobin A1c Today E11.65 - Type 2 diabetes mellitus with hyperglycemia Lipid Panel Today E78.5 - Hyperlipidemia, unspecified Microalbumin, Random (w Creat) Today R80.9 - Proteinuria, unspecified Vitamin D 25-OH Total Today E55.9 - Vitamin D deficiency, unspecified Comprehensive [place]. Panel Fast Today E11.65 - Type 2 diabetes mellitus with hyperglycemia Thyroid Stimulating Hormone Today E03.9 - Hypothyroidism, unspecified Referrals Endocrinology Referral E11.65 - Type 2 diabetes mellitus with hyperglycemia Ophthalmology Referral E11.65 - Type 2 diabetes mellitus with hyperglycemia Medications: Changed From metformin ER 1,500 mg (3 x 500 mg) PO DAILY 90 days 270 tabs 1RF E11.9 - Type 2 diabetes mellitus without complications To metformin ER 2,000 mg (4 x 500 mg) PO DAILY 360 tabs 1RF 90 days E11.9 - Type 2 diabetes mellitus without complications Patient Instructions: - Increase Metformin to 2,000 mg daily as directed. - Continue current blood pressure and lipid medications. - Schedule and attend a diabetes eye examination. - Maintain a low-sugar diet with portion control. - Follow up for lab work, including thyroid function tests. - Return to the clinic for routine diabetes management and lab review.
[2024-11-17 16:28] VITALS: BP 138/82; BMI 28.7
--- OUTSIDE RECORDS SUMMARY | 2024-11-17 18:32 | XMS_ITS | Clinical Summary ---
Author Organization [facility] ity Address [id number] [place] [id number] Care Team Providers Care Job Site Superintendent Name Role Phone Efrain Harrington MD Primary Care Provider [phone] Allergies No known active allergies Medications acetaminophen (TYLENOL) 500 mg tablet Take 1 Tab by mouth every 6 hours as needed for Pain for up to 10 days. 09/22/2020 Active atorvastatin (LIPITOR) 10 mg tablet TAKE 1 TABLET BY MOUTH DAILY 12/19/2021 Active betamethasone, augmented, (DIPROLENE) 0.05 % ointment Apply twice daily to affected areas for 2-3 weeks, then only on weekends 05/08/2018 Active blood-glucose meter kit Use once daily to check blood sugars 02/07/2016 Active lancets lancets Use one lancet daily to check blood sugars 11/03/2019 Active clobetasoL (TEMOVATE) 0.05 % ointment Apply twice daily to affected areas for 2-3 weeks, then only on weekends 05/07/2018 Active hydroCHLOROthia zide (HYDRODIURIL) 25 mg tablet TAKE 1 TABLET BY MOUTH DAILY 12/19/2021 Active levothyroxine (SYNTHROID, LEVOTHROID) 50 mcg tablet TAKE 1 TABLET BY MOUTH DAILY 12/19/2021 Active losartan (COZAAR) 50 mg tablet TAKE 1 TABLET BY MOUTH DAILY 12/19/2021 Active metFORMIN XR (GLUCOPHAGE-XR) 500 mg 24 hr tablet TAKE ONE TABLET BY MOUTH EVERY MORNING WITH BREAKFAST. 10/19/2022 Active neomycin-polymy brian-hydrocortis one (CORTISPORIN) otic solution Place 3 Drops into both ears 4 times daily for 10 days. 09/22/2020 Active Active Problems Problem Noted Date Diagnosed Date Hypothyroid 09/03/2024 HTN (hypertension) 09/03/2024 Dyslipidemia 09/03/2024 DM (diabetes mellitus) 02/07/2016 Hematuria, microscopic 03/22/2015 Immunizations Name Administration Dates Next Due Pneumococcal conjugate 13 va lent (Prevnar 13, PCV13) 2mo and older 03/02/2019 Tdap Tetanus diptheria acell ular pertussis (Boostrix; Adacel) 7yo and older 03/10/2015 Zoster Live 06/27/2014 Surgical History Surgery Date Site/Laterality Comments BACK SURGERY PROCEDURE: HISTORICAL BACK SURGERY OTHER SURGICAL HISTORY PROCEDURE: [place] STAB PHLEBT VARICOSE VEINS 1 XTR > 20 INCS Medical History Medical History Date Comments HTN (hypertension) DX:HTN (hyper tension) Hypothyroid DX:Hypothyroid Dyslipidemia DX:Dyslipidemia Lichen sclerosus DX:Lichen scler osus; COMMENT: on extremities post clobetasol Family History Medical History Relation Name Comments No Known Problems Daughter Diabetes Father No Known Problems Maternal Grandfather No Known Problems Maternal Grandmother No Known Problems Mother No Known Problems Other No Known Problems Paternal Grandfather No Known Problems Paternal Grandmother No Known Problems Sister Breast cancer Neg Hx Colon cancer Neg Hx Ovarian cancer Neg Hx Relation Name Status Comments Daughter Father Maternal Grandfather Maternal Grandmother Mother Other Paternal Grandfather Paternal Grandmother Sister Social History Tobacco Use Types Packs/Day Years Used Date Smoking Tobacco: Never Smokeless Tobacco: Never Alcohol Use Standard Drinks/Week Comments No 0 (1 standard drink = 0.6 oz pur e alcohol) Comments Unknown Sex and Gender Information Value Date Recorded Sex Assigned at Not on file Legal Sex Female 4:38 AM EST Gender Identity Not on file Sexual Orientation Not on file Obstetrics History Plan of Treatment Health Maintenance Due Date Last Done Comments Diabetes: Annual Foot Exam 1956 Diabetes: Annual Retina Eye Exam 1955 Zoster Vaccines (2 of 3) 08/22/2014 06/27/2014 Pneumococcal Vaccine: 50+ Years (2 of 2 - PPSV23) 04/27/2019 03/02/2019 RSV Immunization Patients 60 + Years Old (1 - 1-dose 75+ series) 2021 Depression Screening 08/05/2022 Falls Risk Assessment 08/05/2022 Social Influencers of Health Screening 08/05/2022 Diabetes: Blood Sugar Contro l Test (HGBA1C) 08/09/2022 2021 Diabetes: Annual Urine Albumin-Creatinine Ratio (uACR) 2022 2021 Diabetes: Annual GFR (Glomerular Filtration Rate) 2022 2021 Hypertension/CHF/CAD Annual BMP Blood Test 2022 2021 COVID-19 Vaccine (3 - 2023-2 5 season) 2024 12/20/2020, 11/22/2020 Influenza Vaccine (#1) 2024 DTaP,Tdap,and Td Vaccines (2 - Td or Tdap) 03/10/2025 03/10/2015 Cholesterol Screening (Lipid Panel) 2026 2021 Osteoporosis Screening (Bone Density Screening) 10/15/2027 10/15/2017 Hepatitis C Screening Completed 07/20/2014 HIB Vaccines Aged Out No longer eligi ble based on patient's age to complete this topic HPV Vaccines Aged Out No longer eligi ble based on patient's age to complete this topic Hepatitis A Vaccines Aged Out No long er eligible based on patient's age to complete this topic Hepatitis B Vaccines Aged Out No long er eligible based on patient's age to complete this topic IPV Vaccines Aged Out No longer eligi ble based on patient's age to complete this topic MMR Vaccines Aged Out No longer eligi ble based on patient's age to complete this topic Meningococcal ACWY Vaccine Aged Out N o longer eligible based on patient's age to complete this topic Meningococcal B Vacine Aged Out No lo nger eligible based on patient's age to complete this topic RSV Immunization Patients Under 20 months Aged Out No longer eligible b ased on patient's age to complete this topic Varicella Vaccines Aged Out No longer eligible based on patient's age to complete this topic Procedures Procedure Name Priority Date/Time Associated Diagnosis Comments HM URINE ALBUMIN CREATININE RATIO Routine 2021 ANNUAL BMP BLOOD TEST Routine 2021 HEMOGLOBIN A1C Routine 2021 LIPID PANEL Routine 2021 DXA BONE DENSITY STUDY 1+ SITS AXIAL SKEL Routine 10/15/2017 9:54 AM EST Asymptomatic menopausal state HEPATITIS C SCREENING Routine 07/20/2014 from Last 3 Months or Most Recently Relevant to Health Maintenance Results * Urine Albumin Creatinine Ratio (2021) Pathologist [facility] Urine Albumin Creatinine Ratio abstracted [facility] Provider HEALTH MAINTENANCE Final Result * Annual BMP Blood Test (2021) Pathologist [facility] Annual BMP Blood Test abstracted [facility] Provider HEALTH MAINTENANCE Final Result * (ABNORMAL) Hemoglobin A1c (2021) [facility] Hemoglobin A1C 6.9(A) <=6.5 % Blood Venous blood specimen / Unknown Result [facility] Provider LAB BLOOD ORDERABLES Marguerite l Result * (ABNORMAL) Lipid panel (2021) [facility] LDL/HDL Ratio 3 0 - 4 Triglycerides 100 0 - 150 mg/dL Cholesterol 128 0 - 200 mg/dL HDL 39(A) >=40 mg/dL LDL Cholesterol 69 0 - 100 mg/dL Blood Venous blood specimen / Unknown Result [facility] Provider MD LAB BLOOD ORDERABLES Marguerite l Result * DXA BONE DENSITY STUDY 1+ SITS AXIAL SKEL (10/15/2017 9:54 AM EST) Anatomical Region Laterality Modality Bone Densitometr y 07/22/2017 3:05 PM EST Narrative 10/15/2017 2:33 PM EST BONE DENSITY ? Lumbar Spine T-score is -1.0 ?? (SD relative to 20-29 y/o adult) Z-score is +1.1 ??(SD relative to age matched peers) This is normal by criteria defined by the WHO. Left Hip T-score is -0.1 Z-score is +1.5 This is normal by criteria defined by the WHO. Comparison exam(s): no statistically significant change in the bone density of the hip and lumbar spine when compared to most recent bone density examination ?? Confidence level is +/-95%. Impression: Based on the World Health Organization criteria, Binta Layton should be classified as having normal bone density. The [facility] Department of Internal Medicine recommends using National Osteoporosis Foundation (NOF) guidelines in treatment decisions related to osteoporosis. NOF guidelines suggest considering treatment for postmenopausal women and men aged 50 or older presenting with the following: History of hip or vertebral fracture. T-score less than or equal to -2.5 (DXA) at the femoral neck, total hip, or spine, after appropriate evaluation to exclude secondary causes. Low bone mass (T-score between -1.0 and -2.5 at the femoral neck or spine) AND a 10-year probability of a hip fracture greater than or equal to 3% OR a 10-year probability of a major osteoporosis-related fracture greater than or equal to 20% based on the [place]-adapted WHO algorithm Please note that all treatment decisions require clinical judgment and consideration of individual patient factors, including patient preferences, co-morbidities, previous drug use, risk factors not captured in the FRAX model (e.g., frailty, falls, vitamin D deficiency, increased bone turnover, interval significant decline in bone density) and possible under- or over-estimation of fracture risk by FRAX. Procedure Note Harvey Veloz MD - 10/07/2023 BONE DENSITY Lumbar Spine T-score is -1.0 (SD relative to 20-29 y/o adult) Z-score is +1.1 (SD relative to age matched peers) This is normal by criteria defined by the WHO. Left Hip T-score is -0.1 Z-score is +1.5 This is normal by criteria defined by the WHO. Comparison exam(s): no statistically significant change in the bonedensity of the hip and lumbar spine when compared to most recent bonedensity examination Confidence level is +/-95%. Impression: Based on the World Health Organization criteria, Binta Layton should beclassified as having normal bone density. The [facility] Department of Internal Medicine recommendsusing National Osteoporosis Foundation (NOF) guidelines in treatmentdecisions related to osteoporosis. NOF guidelines suggest consideringtreatment for postmenopausal women and men aged 50 or older presentingwith the following: History of hip or vertebral fracture. T-score less than or equal to -2.5 (DXA) at the femoral neck, total hip,or spine, after appropriate evaluation to exclude secondary causes. Low bone mass (T-score between -1.0 and -2.5 at the femoral neck or spine)AND a 10-year probability of a hip fracture greater than or equal to 3% ORa 10-year probability of a major osteoporosis-related fracture greaterthan or equal to 20% based on the [place]-adapted WHO algorithm Please note that all treatment decisions require clinical judgment andconsideration of individual patient factors, including patientpreferences, co-morbidities, previous drug use, risk factors not capturedin the FRAX model (e.g., frailty, falls, vitamin D deficiency, increasedbone turnover, interval significant decline in bone density) and possibleunder- or over-estimation of fracture risk by FRAX. 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
== END 2024-11-17 16:52 | disposition home or self-care (01) ==
PROVIDERS: PCP Internal Medicine; Visit Provider Internal Medicine
DX: E11.65 Type 2 diabetes mellitus with hyperglycemia (principal); E78.5 Hyperlipidemia, unspecified; I10 Essential (primary) hypertension; E03.9 Hypothyroidism, unspecified

== ENCOUNTER → 2024-11-17 15:48 | Outpatient (BNVA) | payer MEDICARE, SELFPAY | PROVIDERS: PCP Internal Medicine; Visit Provider Internal Medicine | DX: E11.65 Type 2 diabetes mellitus with hyperglycemia (principal); E78.5 Hyperlipidemia, unspecified; E03.9 Hypothyroidism, unspecified; I10 Essential (primary) hypertension | CPT/HCPCS: 83036; 96127; 99212 ==

== ENCOUNTER 2024-12-25 08:38 | Outpatient (REF) | payer MEDICARE, SELFPAY ==
--- OUTSIDE RECORDS SUMMARY | 2024-12-25 08:44 | XMS_ITS | Clinical Summary ---
Author Organization [facility] ity Address [id number] [place] [phone] Care Team Providers Care Soils Technician Name Role Phone Efrain Harrington MD Primary Care Provider [phone] Allergies No known active allergies Medications acetaminophen [...] (hypertension) 09/03/2024 Dyslipidemia 09/03/2024 DM (diabetes mellitus) ([facility] V24, [facility] V28 ) 02/07/2016 Hematuria, microscopic 03/22/2015 Immunizations Name Administration Dates Next Due Pneumococcal conjugate 13 va lent (Prevnar 13, PCV13) 2mo and older 03/02/2019 Tdap Tetanus diptheria acell ular pertussis (Boostrix; Adacel) 7yo and older 03/10/2015 Zoster Live 06/27/2014 Surgical History Surgery Date Site/Laterality Comments BACK SURGERY PROCEDURE: HISTORICAL BACK SURGERY OTHER SURGICAL HISTORY PROCEDURE: ID STAB PHLEBT VARICOSE VEINS 1 XTR > [...] 2 - PPSV23) 04/27/2019 03/02/2019 RSV Immunization Adult Patients (1 - 1-dose 75+ series) 2021 Depression Screening 08/05/2022 Falls Risk Assessment 08/05/2022 Social Influencers of Health Screening 08/05/2022 Diabetes: Blood Sugar Contro l Test (HGBA1C) 08/09/2022 2021 Diabetes: Annual Urine Albumin-Creatinine Ratio (uACR) 2022 2021 Diabetes: Annual GFR (Glomerular Filtration Rate) 2022 2021 Hypertension/CHF/CAD Annual BMP Blood Test 2022 2021 COVID-19 Vaccine (3 - 2023-2 5 season) 2024 12/20/2020, 11/22/2020 DTaP,Tdap,and Td Vaccines (2 - Td or Tdap) 03/10/2025 03/10/2015 Influenza Vaccine (Season Ended) 2025 Cholesterol Screening (Lipid Panel) 2026 2021 Osteoporosis [...] age to complete this topic Meningococcal B Vaccine Aged Out No l onger eligible based on patient's age to complete this topic RSV Immunization Patients Under 20 months Aged Out No longer eligible b ased on patient's age to complete this topic Varicella Vaccines Aged Out No longer eligible based on patient's age to complete this topic Procedures Procedure Name Priority Date/Time Associated Diagnosis Comments HM URINE ALBUMIN CREATININE RATIO Routine 2021 HM ANNUAL BMP BLOOD TEST Routine 2021 HEMOGLOBIN A1C Routine 2021 LIPID PANEL Routine 2021 DXA BONE DENSITY STUDY 1+ SITS AXIAL SKEL Routine 10/15/2017 9:54 AM EST Asymptomatic menopausal state HEPATITIS C SCREENING Routine 07/20/2014 from Last 3 Months or Most Recently Relevant to Health Maintenance Results * Urine Albumin Creatinine Ratio (2021) Pathologist [facility] Urine Albumin Creatinine Ratio abstracted [facility] Provider MD HEALTH MAINTENANCE Final Result * Annual BMP Blood Test (2021) [facility] Annual BMP Blood Test abstracted [facility] Provider HEALTH MAINTENANCE Final Result * (ABNORMAL) Hemoglobin A1c (2021) [facility] Hemoglobin A1C 6.9(A) <=6.5 % Blood Venous blood specimen / Unknown Result [facility] Provider MD LAB BLOOD ORDERABLES Marguerite l Result * (ABNORMAL) Lipid panel (2021) [facility] LDL/HDL Ratio 3 0 - 4 Triglycerides 100 0 - 150 mg/dL Cholesterol 128 0 - 200 mg/dL HDL 39(A) >=40 mg/dL LDL Cholesterol 69 0 - 100 mg/dL Blood Venous blood specimen / Unknown Result [facility] Provider MD LAB BLOOD ORDERABLES Marguerite [...] classified as having normal bone density. The [facility] Department of Internal Medicine recommends using [...] beclassified as having normal bone density. The [facility] Department of Internal Medicine recommendsusing National [...] fracture risk by FRAX. Taylor Robert DO [facility] DXA PROCEDURE S Final Result * Hepatitis C Screening (07/20/2014) [facility] Hepatitis C Screening abstracted Historical Provider HEALTH MAINTENANCE Final Result from Last 3 Months or Most Recently Relevant to Health Maintenance Care Teams Soils Technician Relationship Specialty Start Date End Date Efrain Harrington MD PCP - General Internal Medicine 06/09/21
[2024-12-25 10:05] LABS: Alanine Aminotransferase 19 U/L (0-31); Albumin Level 4.2 g/dL (3.5-5.0); Alkaline Phosphatase 92 U/L (39-117); Anion Gap 11 (12-20); Aspartate Amino Transferase 22 U/L (5-31); Bilirubin Total 0.7 mg/dL (0.0-1.0); Blood Urea Nitrogen 25 mg/dL (9-16); Calcium 9.8 mg/dL (8.4-10.2); Carbon Dioxide 28 mmol/L (22-29); Chloride 103 mmol/L (96-108); Cholesterol 190 mg/dL (<200); Estimated Glomerular Filt Rate > 60; Glucose Fasting 173 mg/dL (60-99); HDL Cholesterol 33 mg/dL (>40); LDL Cholesterol Calculated 131 mg/dL (<100); Potassium 4.1 mmol/L (3.3-5.1); Sodium 138 mmol/L (135-145); Total Protein 7.4 g/dL (6.5-8.0); Triglycerides 130 mg/dL (<150)
[2024-12-25 10:15] LABS: Thyroid Stimulating Hormone 3.14 uIU/mL (0.32-4.0); Vitamin D 25-OH Total 27.1 ng/mL (>30)
== END 2024-12-25 08:39 | disposition home or self-care (01) ==
LOC: HO.LAB 08:38
PROVIDERS: PCP Internal Medicine; Visit Provider Internal Medicine
DX: E11.65 Type 2 diabetes mellitus with hyperglycemia (principal); E03.9 Hypothyroidism, unspecified; E78.5 Hyperlipidemia, unspecified; E55.9 Vitamin D deficiency, unspecified
CPT/HCPCS: 36415; 80053; 80061; 82306; 84443